=== PATIENT | female | born 1980 | race Caucasian/White ===

== ENCOUNTER 2023-10-31 16:44 | Emergency (ER) | payer OTHER, SELFPAY ==
--- NOTE | ~2023-10-31 | US_ITS ---
EXAMINATION: US PELVIS CLINICAL INFORMATION: Pelvic pain COMPARISON: None available. TECHNIQUE: Ultrasound of the pelvis is performed using both transabdominal and transvaginal transducers along with Doppler. Transvaginal imaging is performed due to inadequate visualization transabdominally. FINDINGS: Uterus: The uterus is anteverted, anteflexed and measures 10.2 x 4.2 x 5.8 cm. There is an IUD visualized within the endometrial canal in correct position The double wall endometrial thickness is 0.7 mm. The uterus is smooth in contour and has normal myometrial echogenicity. Small hypoechoic lesion in the left fundal uterus noted measuring 0.9 x 0.9 x 1.0 cm.. Adnexa: Both ovaries are visualized. There is normal color flow to the adnexa. There is no ovarian torsion. There is no pelvic ascites or fluid collection. Right ovary measures 3.8 x 1.2 x 1.8 cm. Volume 4.3 mL. Left ovary measures 3.0 x 2.0 x 2.0 cm. There is a corpus luteal cyst measuring 1.3 x 1.5 x 1.4 cm. US/US pelvic and transvaginal IMPRESSION: 1. Small left fundal uterine fibroid. 2. Small corpus luteal cyst left ovary. 3. The right ovary is unremarkable. 4. There is an IUD in correct position within the endometrial canal.
--- NOTE | ~2023-10-31 | US_ITS ---
EXAMINATION: US PELVIS CLINICAL INFORMATION: Pelvic pain COMPARISON: None available. TECHNIQUE: Ultrasound of the pelvis is performed using both transabdominal and transvaginal transducers along with Doppler. Transvaginal imaging is performed due to inadequate visualization transabdominally. FINDINGS: Uterus: The uterus is anteverted, anteflexed and measures 10.2 x 4.2 x 5.8 cm. There is an IUD visualized within the endometrial canal in correct position The double wall endometrial thickness is 0.7 mm. The uterus is smooth in contour and has normal myometrial echogenicity. Small hypoechoic lesion in the left fundal uterus noted measuring 0.9 x 0.9 x 1.0 cm.. Adnexa: Both ovaries are visualized. There is normal color flow to the adnexa. There is no ovarian torsion. There is no pelvic ascites or fluid collection. Right ovary measures 3.8 x 1.2 x 1.8 cm. Volume 4.3 mL. Left ovary measures 3.0 x 2.0 x 2.0 cm. There is a corpus luteal cyst measuring 1.3 x 1.5 x 1.4 cm. US/US pelvic ovarian doppler IMPRESSION: 1. Small left fundal uterine fibroid. 2. Small corpus luteal cyst left ovary. 3. The right ovary is unremarkable. 4. There is an IUD in correct position within the endometrial canal.
[2023-10-31 17:10] VITALS: BP 153/84; PULSE 74; RESP 16; TEMP 36.9; O2SAT 98; BMI 18.2
--- NOTE | 2023-10-31 17:11 | ED_ITS ---
HPI - Female Genitourinary General Chief complaint: Abdominal Pain Stated complaint: pelvic pain hard to walk and move Time Seen by Provider: 10/31/23 17:03 Source: patient Mode of arrival: ambulatory Limitations: no limitations History of Present Illness HPI Narrative: Patient is a 43-year-old female who presents to the emergency department for evaluation. She reports having pelvic pain for the past week, initially started in the left lower side but is now diffuse across the suprapubic region, radiating to the bilateral groin. Pain is constant in nature. She reports that the pain is exacerbated with movement, such as twisting of the torso, while ambulating, certain movements. She denies dysuria, frequency/urgency/hesitancy, abnormal discharge, concern for sexually transmitted infections. Denies possibility of , reporting IUD; ParaGard for the past 5 years, last menstrual period October 14 with typical course. She admits to a history of ovarian cysts. Denies associated fevers, chills, nausea, vomiting, upper abdominal pain, back pain, chest pain, shortness of breath. Related Data Allergies Allergy/AdvReac Type Severity Reaction Status Date / Time No Known Allergies Allergy Verified 10/31/23 17:13 Review of Systems 2 Review of Systems: Yes all other systems are reviewed and are negative PMFSH Past Medical History Attestation statement: The following information was validated with the patient. Source: old records reviewed Social History Social History Advance Directives: No Advance Directives Information Provided: No Do you have a plan to hurt others: No Plan Physical Exam 2 Vital Signs: Vital Signs: Last Vital Signs Temp 98.5 F 10/31/23 19:18 Pulse 76 10/31/23 19:18 Resp 16 10/31/23 19:18 BP 116/63 10/31/23 19:18 Pulse Ox 99 10/31/23 19:18 O2 Del Method Room Air 10/31/23 19:18 BMI result Body Mass Index 18.2 Appearance: Alert.?Oriented to person, place and time. No acute distress.?Normal affect. Eyes: Pupils equal, round and reactive to light.? ENT: Pharynx normal.?? Neck: Normal inspection.? Neck supple.?? CVS: Heart sounds normal. Normal heart rate and rhythm.? Pulses normal.?? Respiratory: No respiratory distress.? Lung sounds clear to auscultation bilaterally?? Abdomen: Soft and non-tender. No CVA tenderness. Normoactive bowel sounds. No pulsatile mass.? Genitourinary:? Supervised by ED computer forensics technician;Peyton. Normal external appearance of urethra.? No lesions/lacerations or discharge or tenderness noted. No Bartholin cyst noted.? Speculum exam: normal appearance/palpation of vagina normal. Copious amount of mucosal yellow vaginal discharge, swelling, erythema, laceratons, or active bleeding noted.?No foreign bodies noted.? No vaginal tenderness noted.? Normal appearance of cervix. Normal palpation of cervix.? Cervical os is closed.? No abnormal cervical discharge noted.? No cervical lesion/mass. Unable to visualize IUD strings.?? No cervical motion tenderness noted.? Negative chandelier sign.? Normal bimanual exam.? Uterine size normal. Uterine consistency normal, non friable.? Bladder normal to palpation. Normal adnexa. Normal rectovaginal exam.? Skin: Skin warm and dry.? Normal skin color.? ?? Extremities: No lower extremity edema. Neuro: Moves all extremities spontaneously. Sensation intact bilaterally. Ambulates with normal steady gait. Course Reevaluation(s) Reevaluation #1: Reviewed findings with patient, she has an outpatient follow-up with her obstetrics gyn physician provider tomorrow, she will discuss with them the presence of uterine fibroid. She reports some improvement in pain after receiving Toradol. We also discussed muscular strain into the groin that may be resulting in pain as well it is worse with ambulating, while sitting with hips flag. At this time I feel that she is stable for discharge home, outpatient follow-up with obstetrics gyn physician/primary care provider, instructed on trialing course of NSAID. Discussed strict return precautions. All questions answered. Medications Administered Discontinued Medications Generic Name Dose Route Start Last Admin Trade Name Freq PRN Reason Stop Dose Admin Ketorolac Tromethamine 30 mg 10/31/23 18:10 10/31/23 20:27 Ketorolac Tromethamine 30 Mg/Ml Vial IM 10/31/23 18:11 30 mg ONCE ONE Administration Medical Decision Making Medical Decision Making MDM Narrative: Patient is a 43-year-old female with past medical history of ovarian cyst who presents to the emergency department for evaluation of pelvic pain as per HPI. Overall she appears well, nontoxic, afebrile. She is without tachycardia tachypnea, no respiratory distress. Her abdominal examination is overall benign no tenderness upon palpation exacerbation of pain. No CVA tenderness. On pelvic examination has copious amount of mucosal yellow discharge, she does admit that this is the time she would typically be ovulating and she does usually experience discharge of this nature. Unable to visualize IUD strings at the cervical os. Otherwise unremarkable pelvic examination. Will obtain CBC to evaluate for leukocytosis/ anemia, CMP and lipase to evaluate for abnormal electrolytes /abnormal renal function/ abnormal hepatic/biliary function, EKG and troponin to evaluate for ischemia/ACS. Chest x-ray to evaluate for consolidation/ infiltrate/ mass/ pulmonary congestion and Urinalysis. Differential Diagnosis Differential Diagnoses: The differential diagnosis associated with the presentation includes (Ovarian cyst, TOA/torsion, UTI, muscular strain, suspect less likely to be acute gastrointestinal pathology) Admission/Observation Consideration of admission/observation: Escalation of care including admission/observation considered Lab Data MDM Lab Attestation statement: I reviewed the patient's lab results. CMP unremarkable no electrolyte derangement WALTER arrived in a hepatobiliary function. Urinalysis without evidence of infection or microscopic hematuria. HCG is negative. 10/31/23 17:58 10/31/23 17:57 Labs: Lab Results 10/31/23 10/31/23 Range/Units 17:57 17:58 WBC 9.3 (4.8-10.8) X10*3/uL RBC 4.02 L (4.20-5.50) X10*6/uL Hgb 13.2 (12.0-16.0) g/dl Hct 38.7 (37.0-47.0) % MCV 96.3 (80.0-98.0) fL MCH 32.8 (27.0-33.0) pg MCHC 34.1 (31.0-35.0) g/dl RDW 11.9 (11.0-16.0) % Plt Count 283 (160-400) X10*3/uL MPV 9.5 (9.4-12.3) fL Immature Gran % (Auto) 0.3 (0.0-0.4) % Neut % (Auto) 67.8 (45-73) % Lymph % (Auto) 24.7 (20-40) % Davidson % (Auto) 6.4 (2-11) % Eos % (Auto) 0.5 (0-4) % Baso % (Auto) 0.3 (0-2) % Lymph # (Auto) 2.3 (1.2-4.9) X10*3/uL Davidson # (Auto) 0.6 (0.1-1.2) X10*3/uL Eos # (Auto) 0.1 (0.0-0.4) X10*3/uL Baso # (Auto) 0.0 (0.0-0.2) X10*3/uL Abs Immat Gran (auto) 0.03 (0.00-0.03) X10*3/uL Absolute Neuts (auto) 6.3 (2.0-8.3) x10*3/uL Absolute Nucleated RBC 0.000 (0.0-0.012) X10*3/uL Nucleated RBC % (auto) 0.0 (0.0-0.2) /100WBC Sodium 139 (135-145) mmol/L Potassium 3.9 (3.3-5.1) mmol/L Chloride 106 (96-108) mmol/L Carbon Dioxide 25 (22-29) mmol/L Anion Gap 12 (12-20) BUN 10 (9-16) mg/dL Creatinine 0.72 (0.5-1.4) mg/dL Estim Creat Clear Calc 88.3 Estimated GFR > 60 Random Glucose 91 (60-115) mg/dL Calcium 9.5 (8.4-10.2) mg/dL Total Bilirubin 0.4 (0.0-1.0) mg/dL AST 14 (5-31) U/L ALT 10 (0-31) U/L Alkaline Phosphatase 45 (39-117) U/L Total Protein 7.2 (6.5-8.0) g/dL Albumin 4.2 (3.5-5.0) g/dL Lipase 16 (8-78) U/L Urine Color Yellow Urine Appearance Clear Urine pH 6.5 (5.0-9.0) Ur Specific [place] 1.010 (1.005-1.025) Urine Protein Negative (Neg-Trace) mg/dL Urine Glucose (UA) Negative (Negative) mg/dL Urine Ketones 15 (Negative) mg/dL Urine Blood Negative (Negative) Urine Nitrite Negative (Negative) Ur Leukocyte Esterase Negative (Negative) Urine Test NEGATIVE (NEGATIVE) Radiology Impression Discussion of test interpretation with radiology: I have reviewed the radiologist's reading. Discharge Plan Discharge Clinical Impression: Uterine fibroid, Pelvic pain Patient Disposition: Home, Self-Care Additional Instructions: As discussed, follow-up closely with your obstetrics gyn physician provider as scheduled for tomorrow in addition to your primary care provider. You can take ibuprofen 200 mg, 3 tablets (600mg) every 6-8 hours as needed for pain, in addition to Tylenol 500 mg, 2 tablets (1,000mg) every 4-6 hours as needed for pain, but not to exceed 3 doses daily (3,000mg).? FINDINGS: Uterus: The uterus is anteverted, anteflexed and measures 10.2 x 4.2 x 5.8 cm. There is an IUD visualized within the endometrial canal in correct position The double wall endometrial thickness is 0.7 mm. The uterus is smooth in contour and has normal myometrial echogenicity. Small hypoechoic lesion in the left fundal uterus noted measuring 0.9 x 0.9 x 1.0 cm.. Adnexa: Both ovaries are visualized. There is normal color flow to the adnexa. There is no ovarian torsion. There is no pelvic ascites or fluid collection. Right ovary measures 3.8 x 1.2 x 1.8 cm. Volume 4.3 mL. Left ovary measures 3.0 x 2.0 x 2.0 cm. There is a corpus luteal cyst measuring 1.3 x 1.5 x 1.4 cm. US/US pelvic and transvaginal IMPRESSION: 1. Small left fundal uterine fibroid. 2. Small corpus luteal cyst left ovary. 3. The right ovary is unremarkable. 4. There is an IUD in correct position within the endometrial canal. Referrals: Nadeem Velez DO, MD [Primary Care Provider] - Print Language: Guatemalan
--- OUTSIDE RECORDS SUMMARY | 2023-10-31 17:50 | XMS_ITS | Continuity of Care Document ---
Author Organization [facility] Address [address] [place] [address]- Care Team Providers Care Furniture Sales Associate Name Role Phone Nadeem Velez DO Primary Care Physician Encounter 05/25/22 - 06/01/22 [facility] [address], [address] [place], [place] [address] Attending Physician: Nadeem Velez DO Admitting Physician: Nadeem Velez DO Referring Physician: Nadeem Velez DO Allergies, Adverse Reactions, Alerts No Known Allergies Immunizations Given and Recorded Vaccine Date Status Refusal Reason tetanus/diphtheria/pertussis, acel(Tdap) 1 05/10/11 Given 1Admin Note: Patient given verbal consent for receiving this vaccine; patient given literature for Tdap. Info date 03/18/2008 Medications Multivitamins By Mouth, Daily, 0 Refills, Maintenance, 12/05/17 11:14:27 EDT Start Date: 12/05/17 Status: Ordered Problem List Condition Confirmation Course Effective Dates Status Health St atus Informant Diabetes, gestational Confirmed Active Hemorrhoid Confirmed Active Results Radiology Reports * Exam Date Time Procedure Performing Provider Status 05/25/22 12:00 PM MM Digital Mammo Screening Ruthann Canas; Kiara (Verified) Notes: (MM Digital Mammo Screening) Reason For Exam: Z12.31 SCREENING MAMMOGRAM RESULT: MM Digital Mammo Screening PROCEDURE: MM Digital Mammo Screening INDICATION: Screening. No known palpable abnormalities. COMPARISON: Baseline mammogram. TECHNIQUE: Full-field digital CC and MLO 3D tomosynthesis images of both breasts were acquired. Computer-aided detection (CAD) was utilized in the interpretation of this study. DENSITY: The breast tissue is heterogeneously dense, which may obscure masses. FINDINGS: No suspicious masses, suspicious microcalcifications, or areas of architectural distortion are seen in either breast to suggest malignancy. IMPRESSION: No mammographic evidence of malignancy. RECOMMENDATION: Annual mammographic screening BI-RADS: 1 (Negative) Lay letter mailed to patient WSN: [id number] Ordering Physician: Nadeem Velez Dictated By: Rene Heart MD Dictated Date/Time: 05/25/22 12:04 pm Reviewed By: Rene Heart MD Signed By: Rene Heart MD Signed Date/Time: 05/25/22 12:04 pm Transcribed By: RAKESH Loan Operations Specialist Date/Time: 05/25/22 12:04 pm Birads: Social History Social History Type Response Smoking Status Never smoker entered on: 12/05/17 Sex MG Breast Screening * BHSPowerscribe , CIS S: TRANSCRIBE Rene Heart MD: VERIFY Event Display: Result: Authored Date: [id number] PROCEDURE: MM Digital Mammo Screening INDICATION: Screening. No known palpable abnormalities. COMPARISON: Baseline mammogram. TECHNIQUE: Full-field digital CC and MLO 3D tomosynthesis images of both breasts were acquired. Computer-aided detection (CAD) was utilized in the interpretation of this study. DENSITY: The breast tissue is heterogeneously dense, which may obscure masses. FINDINGS: No suspicious masses, suspicious microcalcifications, or areas of architectural distortion are seen in either breast to suggest malignancy. IMPRESSION: No mammographic evidence of malignancy. RECOMMENDATION: Annual mammographic screening BI-RADS: 1 (Negative) Lay letter mailed to patient WSN: [id number] Ordering Physician: Nadeem Velez Dictated By: Rene Heart MD Dictated Date/Time: 05/25/22 12:04 pm Reviewed By: Rene Heart MD Signed By: Rene Heart MD Signed Date/Time: 05/25/22 12:04 pm Transcribed By: RAKESH Loan Operations Specialist Date/Time: 05/25/22 12:04 pm Birads: Patient Care team information Care Team Personnel Name: Nadeem Velez DO Position: [facility] Physician (General Medicine) Member Role: PCP Address: Address: [address] [place] [address] [address] [place], [place] [address] Care Team Related Persons Name: MORENO PALMA Address: [address] [place] [address] Name: SRINI SIMON Address: [address] [place] [address] Name: SUNNY SIMON Address: [employer] Address: [address] [place] [address]
--- OUTSIDE RECORDS SUMMARY | 2023-10-31 17:50 | XMS_ITS | Continuity of Care Document ---
Author Organization [facility] Address [address] [place] [address]- Care Team Providers Care Director Of Perioperative Services Name Role Phone Nadeem Velez DO Primary Care Physician Encounter 04/11/22 - 04/18/22 [facility] [address], [facility] [address] [place] [address] [place] Attending Physician: Nadeem Velez DO Admitting Physician: [...] Diabetes, gestational Confirmed Active Hemorrhoid Confirmed Active Social History Social History Type Response Smoking Status Never smoker entered on: 12/05/17 Sex Patient Care team information Care Team Personnel Name: Nadeem Velez DO Position: [facility] Physician (General Medicine) Member Role: PCP Address: Address: [address] [place] [address] [address] [place] [address]- Care Team Related Persons Name: MORENO PALMA Address: [address] [place] [address] Name: SRINI SIMON Address: [address] [place] [address] Name: SUNNY SIMON Address: [employer] Address: [address] [place] [address]
--- OUTSIDE RECORDS SUMMARY | 2023-10-31 17:50 | XMS_ITS | Continuity of Care Document ---
Author Organization [facility] Address [address] [place] [address]- Care Team Providers Care Rubber Process Hand Name Role Phone Nadeem Velez DO Primary Care Physician Encounter [facility] Date(s): 05/01/21 - 06/06/[address] [address] Attending Physician: Gutierrez Quijano Admitting Physician: Gutierrez Quijano Referring Physician: Barry Connolly MD Allergies, Adverse Reactions, Alerts No Known Allergies Immunizations Given and Recorded Vaccine Date Status Refusal Reason tetanus/diphtheria/pertussis, acel(Tdap) 1 05/10/11 Given 1Admin Note: Patient given verbal consent for receiving this vaccine; patient given literature for Tdap. Info date 03/18/2008 Medications Multivitamins By Mouth, Daily, 0 Refills, Maintenance, 12/05/17 11:14:27 EDT Start Date: 12/05/17 Status: Ordered Problem List Condition Effective Dates Status Health Status Inform ant Diabetes, gestational(Confirmed) Active Hemorrhoid(Confirmed) Active Social History Social History Type Response Smoking Status Never smoker entered on: 12/05/17 Sex
--- OUTSIDE RECORDS SUMMARY | 2023-10-31 17:50 | XMS_ITS | Continuity of Care Document ---
Author Organization [facility] Address Unknown Care Team Providers Care Informix Developer Name Role Phone Nadeem Velez DO Primary Care Physician En[place] [facility](s): 06/28/21 - 07/28/21 [facility] Attending Physician: Olivia Castillo Admitting Physician: Olivia Castillo Referring Physician: Olivia Castillo Allergies, Adverse Reactions, Alerts No Known Allergies [...]
--- OUTSIDE RECORDS SUMMARY | 2023-10-31 17:50 | XMS_ITS | Continuity of Care Document ---
Author Organization [facility] Address [address] [place] [address]- Care Team Providers Care Engine Oiler Name Role Phone Nadeem Velez DO Primary Care Physician Encounter [facility] Date(s): 05/10/21 - 06/10/[address] [address] Allergies, Adverse Reactions, Alerts No Known Allergies [...]
--- OUTSIDE RECORDS SUMMARY | 2023-10-31 17:50 | XMS_ITS | Continuity of Care Document ---
Author Organization [facility] Address [address] [place] [address]- Care Team Providers Care Singer Songwriter Name Role Phone Nadeem Velez DO Primary Care Physician Encounter [facility] Date(s): 05/11/21 - 06/10/[address] [address] Attending Physician: Olivia Castillo Admitting Physician: Olivia Castillo Referring Physician: AdmtrOlivia Allergies, Adverse Reactions, Alerts No Known Allergies [...]
--- OUTSIDE RECORDS SUMMARY | 2023-10-31 17:51 | XMS_ITS | Continuity of Care Document ---
Author Organization [facility] Address Unknown Care Team Providers Care Car Pincher Name Role Phone Nadeem Velez DO Primary Care Physician Encounter [facility] [place] Date(s): 06/28/21 - 07/05/21 [facility] Encounter Diagnosis Hemorrhoid(Discharge Diagnosis) - 06/28/21 Attending Physician: Nadia BEARDEN, Dorcas Bright Referring Physician: Nadeem Velez DO Allergies, Adverse [...] Inform ant Diabetes, gestational(Confirmed) Active Hemorrhoid(Confirmed) Active Diagnosis Diagnosis Type Effective Dates Health Status Clini dalila Service Informant Hemorrhoid Discharge Diagnosis 06/28/21 Vital Signs Most recent to oldest [Reference Range]: 1 Height 168 cm (06/28/21 11:21 AM) Weight 59.5 kg (06/28/21 11:21 AM) Pulse Rate [55-90 bpm] 96 bpm *H* (06/28/21 11:21 AM) Body Mass Index [18.5-24.99] 21.08 (06/28/21 11:21 AM) Blood Pressure [90-138/55-84 mm Hg] 131/ 84mm Hg (06/28/21 11:21 AM) Temperature [96.8-100.4 DegF] 98.8 DegF (06/28/21 11:21 AM) Social History Social History Type Response Smoking Status Never smoker entered on: 12/05/17 Sex
--- OUTSIDE RECORDS SUMMARY | 2023-10-31 17:51 | XMS_ITS | Continuity of Care Document ---
Author Organization [facility] Address Unknown Care Team Providers Care Psych Np Name Role Phone Nadeem Velez DO Primary Care Physician [place] [facility] [place] 05/21[place]21 - 07/16/21 [facility] Attending Physician: Isidoro BEARDEN, Savanna Lerner Referring Physician: Nadeem Velez DO Allergies, Adverse [...]
--- OUTSIDE RECORDS SUMMARY | 2023-10-31 17:51 | XMS_ITS | Continuity of Care Document ---
Author Organization [facility] ion Address [address] [place] [id number]- Care Team Providers Care Farm Product Purchaser Name Role Phone Nadeem Velez DO Primary Care Physician Encounter [facility] [place] Date(s): 05/11/21 - 01/12/[address] [address] Discharge Disposition: A-D/C Home Admitting Physician: Not on Staff, Admitting MD Referring Physician: Not on Staff, Referring MD Allergies, Adverse Reactions, Alerts No Known [...] Status Never smoker entered on: 12/05/17 Sex Care Team Personnel Name: Nadeem Velez DO Address: [address] [place] [address] [address] [place] [address]-
--- OUTSIDE RECORDS SUMMARY | 2023-10-31 17:51 | XMS_ITS | Continuity of Care Document ---
Author Organization [facility] Address [address] [facility] [place] [address]- Care Team Providers Care Hvac Designer Name Role Phone Nadeem Velez DO Primary Care Physician Encounter 09/28/21 - 03/16/22 [facility] [address], [facility] [address] [place] [address] us Attending Physician: Nadeem Velez DO Admitting [...] Team Personnel Name: Nadeem Velez DO Position: [facility] Physician (General Medicine) Member Role: PCP Address: Address: [address] [place] [address] [address] [place] [address]- Care Team Related Persons Name: MORENO PALMA Address: home [address] [place] [address] Name: SRINI SIMON Address: home [address] [place] [address] Name: SUNNY SIMON Address: [employer] Address: [address] [place] [address]
[2023-10-31 18:00] VITALS: BP 116/66; PULSE 66; RESP 16; TEMP 36.7; O2SAT 98
[2023-10-31 18:08] LABS: Basophils Percent Auto 0.3 % (0-2); Eosinophils Absolute Auto 0.1 X10*3/uL (0.0-0.4); Eosinophils Percent Auto 0.5 % (0-4); Hematocrit 38.7 % (37.0-47.0); Hemoglobin 13.2 g/dl (12.0-16.0); Imm Gran Abs Auto 0.03 X10*3/uL (0.00-0.03); Imm Gran Pct Auto 0.3 % (0.0-0.4); Lymphocytes Absolute Auto 2.3 X10*3/uL (1.2-4.9); Lymphocytes Percent Auto 24.7 % (20-40); MANUAL DIFF FLAG NO; Mean Corpuscular HGB Conc 34.1 g/dl (31.0-35.0); Mean Corpuscular Hemoglobin 32.8 pg (27.0-33.0); Mean Corpuscular Volume 96.3 fL (80.0-98.0); Mean Platelet Volume 9.5 fL (9.4-12.3); Monocytes Absolute Auto 0.6 X10*3/uL (0.1-1.2); Monocytes Percent Auto 6.4 % (2-11); Neutrophils Absolute Auto 6.3 x10*3/uL (2.0-8.3); Neutrophils Percent Auto 67.8 % (45-73); Platelet Count 283 X10*3/uL (160-400); Red Blood Count 4.02 X10*6/uL (4.20-5.50); Red Cell Distribution Width 11.9 % (11.0-16.0); White Blood Count 9.3 X10*3/uL (4.8-10.8)
[2023-10-31 18:15] LABS: Appearance Urine Clear; Color Urine Yellow; Glucose Urine UA Negative (Negative); Leukocyte Esterase Urine Negative (Negative); Nitrite Urine Negative (Negative); PH 6.5 (5.0-9.0); Urine Blood Negative (Negative); Urine Ketones 15 mg/dL (Negative); Urine Protein Negative (Neg-Trace)
[2023-10-31 18:17] LABS: Alanine Aminotransferase 10 U/L (0-31); Albumin Level 4.2 g/dL (3.5-5.0); Alkaline Phosphatase 45 U/L (39-117); Anion Gap 12 (12-20); Aspartate Amino Transferase 14 U/L (5-31); Bilirubin Total 0.4 mg/dL (0.0-1.0); Blood Urea Nitrogen 10 mg/dL (9-16); Calcium 9.5 mg/dL (8.4-10.2); Carbon Dioxide 25 mmol/L (22-29); Chloride 106 mmol/L (96-108); Creatinine Clr Calc Pharmacy 88.3; Estimated Glomerular Filt Rate > 60; Glucose Random 91 mg/dL (60-115); Lipase 16 U/L (8-78); Potassium 3.9 mmol/L (3.3-5.1); Sodium 139 mmol/L (135-145); Total Protein 7.2 g/dL (6.5-8.0)
[2023-10-31 18:18] LABS: UPreg QC Valid YES; Urine Pregnancy NEGATIVE (NEGATIVE)
[2023-10-31 19:18] VITALS: BP 116/63; PULSE 76; RESP 16; TEMP 36.9; O2SAT 99
[2023-10-31] MEDS: Ketorolac Tromethamine 30 MG/ML VIAL IM (20:27)
[2023-10-31 21:28] VITALS: BP 107/60; PULSE 62; RESP 16; TEMP 36.9; O2SAT 98
[2023-10-31 21:36] VITALS: BP 107/60; PULSE 62; RESP 16; TEMP 36.9; O2SAT 98
[2023-11-01 02:19] LABS: CT PCR NOT DETECTED (Not Detect.); NG PCR NOT DETECTED (Not Detect.)
[2023-11-01 08:57] LABS: Bacterial Vaginosis PCR NEGATIVE (Negative); Candida Group PCR NOT DETECTED (Not Detect); Candida glab krusei PCR NOT DETECTED (Not Detect); Trichomonas vaginalis PCR NOT DETECTED (Not Detect)
== END 2023-10-31 21:43 | disposition home or self-care (01) ==
PROVIDERS: Nurse Practitioner Family; Emergency Provider Internal Medicine; PCP Internal Medicine
DX: D25.9 Leiomyoma of uterus, unspecified (principal); R10.2 Pelvic and perineal pain
CPT/HCPCS: 0352U; 36415; 76830; 76856; 80053; 81003; 81025; 83690; 85025; 87491; 87591; 93975; 96372; 99284; J1885

== ENCOUNTER 2024-02-20 16:21 | Outpatient (REF) | payer OTHER, SELFPAY ==
--- NOTE | ~2024-02-20 | MR_ITS ---
EXAMINATION: MR PELVIS WITH CONTRAST CLINICAL INFORMATION: Right sacroiliac pain. COMPARISON: None available. TECHNIQUE: MRI of the pelvis, using sacral protocol. Multiplanar multisequence imaging on a 1.5 Clarissa scanner. FINDINGS: BONE/JOINTS: There is edema in the ilium and the sacrum marginating the right SI joint. The right SI joint appears wider as compared to the left side. No significant joint effusion is seen. No significant edema or effusion is identified associated with the left SI joint. No significant sacral edema otherwise to indicate stress injury or fracture. Limited evaluation of the hip joints, with anatomic alignment. No findings to suggest fracture, avascular necrosis or stress reaction. In the visualized lower lumbar spine, the vertebral body heights are maintained. Loss of signal in the L5-S1 disc. MUSCLE/TENDONS: Limited evaluation. Visualized tendons are intact. No significant muscle edema or tear are seen. No significant greater trochanteric or iliopsoas bursitis. ADDITIONAL FINDINGS: Urinary bladder appears unremarkable. Small fluid in the pelvis. No groin lymphadenopathy. MR/MR pelvis wo con IMPRESSION: Right sacroiliac joint findings consistent with sacroiliitis. Correlate with x-ray. Small free fluid in the pelvis, probably physiologic. Electronically signed by: Adan Escamilla MD 02/22/2024 09:22 AM EDT
== END 2024-02-20 16:22 | disposition home or self-care (01) ==
LOC: HO.MRI 16:21
PROVIDERS: PCP Internal Medicine; Visit Provider Internal Medicine
DX: M46.1 Sacroiliitis, not elsewhere classified (principal)
CPT/HCPCS: 72195

== ENCOUNTER 2024-02-23 11:15 | Outpatient (AMB) | payer OTHER, SELFPAY ==
--- NOTE | 2024-02-23 11:19 | MHC.OFFVIS ---
Intake Visit Reasons: right hip pain, Low back pain Intake Note: Christine is a 44-year-old female who presents with complaints of progressively worsening pain along the posterior aspect of her right hip as well as low back pain. The patient states that her symptoms have gotten somewhat worse since she had her 3rd child approximately 6 years ago. She denies any weakness in either lower extremity. The patient states that her pain is worst around the time of her monthly menstrual cycle. She has tried to leave, Tylenol and Motrin which gave her minimal relief. The patient states that at time she is bed ridden because of her pain. She denies any numbness or tingling in either of her lower extremities. Allergies No Known Allergies Allergy (Verified 10/31/23 17:13) Medication List - Last Reconciled 02/23/24 by Mnih Arrington MD No Known Home Meds Physical Exam Const Other: This examination was performed via telephone conversation. The patient states that she is point tender along the right side of her low back Results Reviewed Results Reviewed: Pelvic ultrasound performed on 10/31/2023 shows a small uterine fibroid, IUD visualized, small corpus luteal cyst left ovary MRI of the patient's pelvis taken on 02/20/2024 shows widening of the right sacroiliac joint with no obvious sacral edema, stress injury or fracture; uterine fibroid Assessment & Plan Assessment & Plan (1) Low Back Pain: Code(s): M54.50 - Low back pain, unspecified Category: Medical Plan Christine is a 44-year-old female who presents with progressively worsening right-sided low back pain most likely due to sacroiliitis as well as possible worsening symptoms from her uterine fibroid. The patient's MRI was reviewed with both doctors Jose and Josafat from pain management and peoplesoft taleo manager here at [facility] respectively. They both agree to see her in consultation for further evaluation. I will contact Dr. Velez's office for the needed referrals. The patient will follow-up as instructed. Feel free to call me at any time should questions regarding her orthopedic management arise. Coding Level of Care Code Tele New Pt Level 3 (98983) Complex EM visit Add On G2211 Diagnoses Low Back Pain M54.50
== END 2024-02-23 11:43 | disposition home or self-care (01) ==
LOC: HO.HOS 11:15
PROVIDERS: PCP Internal Medicine; Visit Provider Orthopaedic Surgery
DX: M54.50 Low back pain, unspecified (principal)
CPT/HCPCS: 99443

== ENCOUNTER → 2024-02-23 11:15 | Outpatient (BNVA) | payer OTHER, SELFPAY | PROVIDERS: PCP Internal Medicine; Visit Provider Orthopaedic Surgery ==

== ENCOUNTER 2024-03-04 13:11 | Outpatient (AMB) | payer OTHER, SELFPAY ==
--- NOTE | 2024-03-04 13:15 | MHC.OFFVIS ---
Vital Signs 03/04/24 13:22 Height 5 ft 8 in Weight 132 lb 4 oz BMI 20.1 BP 116/70 Blood Pressure Location Lt brachial Position Sitting Respiration 16 Pulse 70 Pulse Source Pulse Oximeter Pulse Oximetry (%) 99 Oxygen Delivery Method Room Air Intake Visit Reasons: Sacroilac Sclerosis foun on Xray Intake Note: Patient comes in for initial visit was referred by [facility]. Reports pain 0/10. Allergies No Known Allergies Allergy (Verified 03/04/24 13:21) HPI Comments Details: Christine is very pleasant 44 years old female who presents in my office with no complaints today. She reports that she feels no pain whatsoever today at all. She has episodes of intermittent lower back pain which started to bother her 8 years ago after she delivered her 2nd child. She reports pain in the projection of the right buttock in the projection of the sacroiliac joint location. When the it is hurtful she can not sleep normally can not do activities of daily living she can not take care of herself but she can not function normally. She is working full-time. In terms of tissue damage he reports her pain is shooting, lancinating, sharp, pinching, cramping, sore, hurting, aching, heavy, tiring, exhausting, fearful, radiating, piercing, tight sensation. When she experiences severe pain she takes Tylenol 350 mg 2 pills and Advil 200 mg 2 pills at once and that makes her pain better however she reports that she does not feel herself after this medications. She had an MRI of the pelvis results of which dictated as below. On the MRI there is symptoms of sacroiliitis on the right. She never had any injections. She never had any physical therapy. She never had any diagnostic procedures. She is very active and she likes to exercise. She walks outside and she also walks on a treadmill. There is no past medical history. Past surgical history significant for tonsillectomy. 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 She denies smoking cigarettes socially drinks alcohol she denies caffeinated beverages but admits plain coffee. She denies recreational drugs. Review of Systems Const All systems reviewed & are unremarkable except as noted in HPI and below ENT Reports Normal hearing present Neuro Reports Normal hearing present, Denies Abnormal speech present and Denies Sensory deficit (Neuro) Physical Exam Vital Signs: Last Vital Signs Pulse 70 03/04/24 13:22 Resp 16 03/04/24 13:22 BP 116/70 03/04/24 13:22 Pulse Ox 99 03/04/24 13:22 Oxygen Delivery Method Room Air 03/04/24 13:22 BMI result Body Mass Index 20.1 Const General: no acute distress, alert and Physically active Nutritional Appearance: average body habitus and well nourished Orientation/consciousness: patient oriented x3 Limitations: no limitations Eyes General: appearance normal, both eyes and all related structures Pupils: Equal, round and reactive pupils present EOM: EOMs intact bilaterally Neck Neck: Yes full ROM Chest Chest palpation & inspection: normal inspection of the chest Resp Effort & Inspection: normal respiratory effort, able to speak in complete sentences, normal respiratory pattern, no audible wheezes and no cough Cardio Jugular venous distension: no JVD GI Inspection: Yes normal to inspection Back/Spine/Pelvis Other: Currently patient experiences no pain. No tenderness on palpation in the projection of the sacroiliac joints. Negative Arturo test, negative Gaenslen test, negative pelvic compression and pelvic distraction test. Negative thigh thrust test. Neuro General: patient oriented x3 and gait normal Cranial nerves: Yes CN's II-XII intact bilaterally, Yes Equal, round and reactive pupils present, Yes Normal hearing present and Yes Ability to bilaterally elevate shoulders present Speech: No Abnormal speech present Gait exam (Neuro): Normal gait present Motor exam (neuro): 5/5 motor strength present throughout Sensory Exam: No Sensory deficit (Neuro) Extrem General: No pedal edema Psych Speech and movement: Normal speech and movement present Affect: normal affect Attitude: cooperative Thought process: Normal thought process present Thought content: Normal thought content present Insight: Good insight present (Psych) Judgement: Good judgement present (Psych) Results Reviewed Results Reviewed: MRI of the pelvis, using sacral protocol. Multiplanar multisequence imaging on a 1.5 Clarissa scanner. FINDINGS: BONE/JOINTS: There is edema in the ilium and the sacrum marginating the right SI joint. The right SI joint appears wider as compared to the left side. No significant joint effusion is seen. No significant edema or effusion is identified associated with the left SI joint. No significant sacral edema otherwise to indicate stress injury or fracture. Limited evaluation of the hip joints, with anatomic alignment. No findings to suggest fracture, avascular necrosis or stress reaction. In the visualized lower lumbar spine, the vertebral body heights are maintained. Loss of signal in the L5-S1 disc. MUSCLE/TENDONS: Limited evaluation. Visualized tendons are intact. No significant muscle edema or tear are seen. No significant greater trochanteric or iliopsoas bursitis. ADDITIONAL FINDINGS: Urinary bladder appears unremarkable. Small fluid in the pelvis. No groin lymphadenopathy. IMPRESSION: Right sacroiliac joint findings consistent with sacroiliitis. Correlate with x-ray. Small free fluid in the pelvis, probably physiologic. Assessment & Plan Assessment & Plan (1) Sacroiliitis: Code(s): M46.1 - Sacroiliitis, not elsewhere classified Category: Medical Plan The MRI of the pelvic demonstrates sacroiliac joint inflammation. Currently patient does not exhibit any signs of sacroiliitis or sacroiliac joint pain. I can not offer the patient at this time any injections however if her pain will come back I would be glad to recommend right sacroiliac joint diagnostic injection. Meanwhile recommend her to avoid high impact aerobic exercise, exercise with stationary bicycle, elliptical machine, or swimming. She may take Tylenol and ibuprofen/Advil for control of her pain. Physical therapy and sacroiliac joint belt could be recommended if her problem is demonstrated by sacroiliac joint diagnostic injection, therapeutic sacroiliac joint injection could be also performed. Coding Level of Care Code New Pt Level 3 (78804) Diagnoses Sacroiliitis M46.1
[2024-03-04 13:22] VITALS: BP 116/70; PULSE 70; RESP 16; O2SAT 99; BMI 20.1
== END 2024-03-04 14:07 | disposition home or self-care (01) ==
PROVIDERS: PCP Internal Medicine; Visit Provider Anesthesiology
DX: M46.1 Sacroiliitis, not elsewhere classified (principal)
CPT/HCPCS: 99203

== ENCOUNTER 2024-03-06 11:55 | Outpatient (AMB) | payer OTHER, SELFPAY ==
[2024-03-06 11:42] VITALS: BP 128/74; BMI 20.1
--- NOTE | 2024-03-06 11:42 | A.OFFVIS_ITS ---
Vital Signs 03/06/24 11:42 Height 5 ft 8 in Weight 132 lb BMI 20.1 BP 128/74 Blood Pressure Location Lt brachial Position Sitting Intake Visit Reasons: uterine fibroids Allergies No Known Allergies Allergy (Verified 03/06/24 11:42) Is last menstrual period known: Yes Last menstrual period: 03/03/24 HPI Comments Details: Presenting regarding uterine fibroid identified on pelvic ultrasound few months ago. The patient has ParaGard IUD since then menstrual cycles of heavier with no pelvic cramping. The patient is experiencing few times a year back pain that does not appear to be cyclic or premenstrual. 11/21 pelvic ultrasound showed the following: Uterus: The uterus is anteverted, anteflexed and measures 10.2 x 4.2 x 5.8 cm. There is an IUD visualized within the endometrial canal in correct position The double wall endometrial thickness is 0.7 mm. The uterus is smooth in contour and has normal myometrial echogenicity. Small hypoechoic lesion in the left fundal uterus noted measuring 0.9 x 0.9 x 1.0 cm.. Adnexa: Both ovaries are visualized. There is normal color flow to the adnexa. There is no ovarian torsion. There is no pelvic ascites or fluid collection. Right ovary measures 3.8 x 1.2 x 1.8 cm. Volume 4.3 mL. Left ovary measures 3.0 x 2.0 x 2.0 cm. There is a corpus luteal cyst measuring 1.3 x 1.5 x 1.4 cm. 02/21 MRI of the pelvis: IMPRESSION: Right sacroiliac joint findings consistent with sacroiliitis. Correlate with x-ray. Small free fluid in the pelvis, probably physiologic. [facility] Family History (Updated 03/06/24 @ 11:58 by Venecia Multani CMA) Maternal Grandmother Ovarian cancer Social History Household Members: Family Housing: House Alcohol intake: current Alcohol intake frequency: a few times a week Alcohol type: wine Patient Tobacco Use Status: Never used Tobacco Female Reproductive History Menstrual Date of last menstrual period: 03/03/24 control method: copper IUCD Total pregnancies: 3 Full term: 3 Number of Living Children: 3 Review of Systems Const All systems reviewed & are unremarkable except as noted in HPI and below Physical Exam Vital Signs: Last Vital Signs BP 128/74 03/06/24 11:42 BMI result Body Mass Index 20.1 General: Yes no CVA tenderness External Female Exam: normal external appearance and normal appearance of the urethra Speculum Exam - Vagina: normal appearance of the vagina, normal palpation, no lesions and no masses Speculum Exam - Cervix: normal appearance of the cervix, normal palpation, no lesions, no masses and nontender Bimanual exam- vagina & uterus: normal bimanual exam, normal palpation, uterine size normal, normal palpation, uterine shape normal, No Cervical tenderness present and non-tender Bimanual Exam- Adnexa, other: normal adnexae Back/Spine/Pelvis Back: no CVA tenderness Assessment & Plan Assessment & Plan (1) Uterine fibroid: Code(s): D25.9 - Leiomyoma of uterus, unspecified Category: Medical Plan: Discussed with the patient the pelvic ultrasound findings : an anteverted uterus with a 1 cm fundal myoma. IUD is in appropriate position. Discussed the possibility of changing copper IUD to a levo norgestrel IUD, the benefits of which is to decrease the menstrual flow with a mild increase in the risk of breast cancer with long-term use; the patient is happy with ParaGard IUD currently and is not bothered by her menstrual flow, does not have any associated dysmenorrhea and therefore, is not interested at this point to change unless her menstrual cycle gets heavier or pelvic cramping develops. Recomme nded ibuprofen 600 mg p.o. Q 8 hours day 1-3 of menstrual cycle for its anti- inflammatory effect generated by the copper in ParaGard IUD and in an effort to help reduce the menstrual flow. The patient will call in case of pelvic pain/cramping, heavy or irregular menstrual cycles , then other options of treatment for myoma will be considered including control pills, TXA, uterine artery embolization or endometrial ablation especially if the myoma is larger and dysmenorrhea/AUB develops. (2) Back pain: Code(s): M54.9 - Dorsalgia, unspecified Category: Medical Plan: Discussed with the patient that given that the uterus position is anteverted with a small size fundal myoma, in addition to evidence of sacroiliitis by MRI, it is unlikely that the uterine position and/or myoma are the causes of her back pain . In case all medical treatment options for back pain and sacroiliitis are refractory, will attempt a therapeutic trial with any of the different options of treatment for uterine myoma . Orders: Orders US pelvic and transvaginal 1 Year D25.9 - Leiomyoma of uterus, unspecified Coding Level of Care Code New Pt Level 3 (01453) Diagnoses Uterine fibroid D25.9 Back pain M54.9
== END 2024-03-06 13:27 | disposition home or self-care (01) ==
LOC: HO.HWS 11:55
PROVIDERS: PCP Internal Medicine; Visit Provider Obstetrics & Gynecology
DX: D25.9 Leiomyoma of uterus, unspecified (principal); M54.9 Dorsalgia, unspecified
CPT/HCPCS: 99203

== ENCOUNTER → 2024-03-06 11:55 | Outpatient (BNVA) | payer OTHER, SELFPAY | PROVIDERS: PCP Internal Medicine; Visit Provider Obstetrics & Gynecology ==

== ENCOUNTER 2024-03-13 11:27 | Outpatient (REF) | payer OTHER, SELFPAY | END 2024-03-13 11:28 | disposition home or self-care (01) | LOC: HO.US 11:27 | PROVIDERS: PCP Internal Medicine; Visit Provider Obstetrics & Gynecology | DX: D25.9 Leiomyoma of uterus, unspecified (principal) | CPT/HCPCS: 76830; 76856 ==

== ENCOUNTER → 2024-03-13 11:29 | Outpatient (BNV) | payer OTHER, SELFPAY | PROVIDERS: PCP Internal Medicine; Visit Provider Radiology Diagnostic Radiology | DX: D25.9 Leiomyoma of uterus, unspecified (principal) | CPT/HCPCS: 76856 ==

== ENCOUNTER 2024-05-06 11:33 | Outpatient (AMB) | payer OTHER, SELFPAY ==
--- NOTE | 2024-05-06 11:35 | A.OFFVIS_ITS ---
Intake Visit Reasons: US f/u Allergies No Known Allergies Allergy (Verified 05/06/24 11:35) HPI Comments Details: The patient is presenting for follow-up pelvic ultrasound which showed the following: IMPRESSION: Intrauterine IUD is noted in correct position. Is unchanged to previous exam 11/18/2023 Small uterine fibroid is stable. Bilateral ovarian small cysts with a 1 cm dominant cyst in left ovary Doing well with no complaints, no pelvic pressure pain or abnormal uterine bleeding PFSH Family History (Updated 03/06/24 @ 11:58 by Venecia Multani CMA) Maternal Grandmother Ovarian cancer Social History (Updated 03/06/24 @ 11:58 by Venecia Multani CMA) Household Members: Family Housing: House Alcohol intake: current Alcohol intake frequency: a few times a week Alcohol ty pe: wine Patient Tobacco Use Status: Never used Tobacco Review of Systems Const All systems reviewed & are unremarkable except as noted in HPI and below Reports as per HPI and Reports no additional complaints GI Reports no additional complaints Reports no additional complaints Assessment & Plan Assessment & Plan (1) Uterine fibroid: Code(s): D25.9 - Leiomyoma of uterus, unspecified Category: Medical Plan: Discussed with the patient the results of the ultrasound showing a stable size myoma, IUD in appropriate position. Will repeat pelvic ultrasound periodically to monitor the size of the myoma. 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 All questions answered, the patient verbalized understanding Coding Level of Care Code Est Pt Level 3 (47574) Diagnoses Uterine fibroid D25.9
--- OUTSIDE RECORDS SUMMARY | 2024-05-06 13:20 | XMS_ITS | Continuity of Care Document ---
Author Organization [facility] Address [address] [place] [address] Phone Care Team Providers Care Knowledge Management Advisor Name Role Phone Arnoldo Melara Unavailable Unavailable Allergies, Adverse Reactions, Alerts Substance Reaction Status [...] Copied on Encounter [facility], [address], [place], [place], [id number], tel:[phone] VR - [facility] No Information Saritha Mclaughlin. [address], [address], [place], [address], [place]. tel:[phone] Referring Provider: Arnoldo Joshi, [address], [place], [address]. tel:[phone] [facility], [address] [address], [place], [place], [id number], [place] tel:[phone] VR - [place] [facility] Spider Veins - (Telangiectas ia) Saritha Mclaughlin. [address], [address], [place], [address], . tel:[phone] Referring Provider: Arnoldo Joshi, [address], [place], [address]. tel:[phone] [facility], [address] [address], [place], [place], [id number], tel:[phone] [facility] - [place] Spider Veins - (Telangiectas ia) Saritha Mclaughlin. [address] [place] [address], [address], [place], [address], . [phone] Referring Provider: Arnoldo Joshi, [address], [place], [address]. tel:[phone] [facility], [address] [address], [place], [place], [id number], [place] tel:[phone] VR - [place] Spider Veins - (Telangiectas ia) Saritha Mclaughlin. [address] [place] [address], [address], [place], [address], [place]. tel:[phone] Referring Provider: Arnoldo Joshi, [address], [place], [address]. tel:[phone] Offic Cons New/estab Mod-hi 60 [facility], [address], [place], [place], [id number], [place] tel:[phone] VR - [place] Body mass index (BMI) 20.0-20.9, adultSpider Veins - (Telangiectas ia) Saritha Mclaughlin. [address], [address], [place], [address], [place]. tel: [phone] Referring Provider: Arnoldo Joshi, [address], [place], [address]. tel:[phone] [facility], [address], [place], [place], [id number], [place] tel:[phone] VR - [place] Chronic venous htn w oth comp of bilateral low extrm Saritha Mclaughlin. [address], [address], [place], [address], [place]. tel: [phone] Referring Provider: Arnoldo Joshi, [address], [place], [address]. tel:[phone] [facility], [address], [place], [place], [id number], [place] tel:[phone] VR - [place] [facility] [place] No Information Saritha Mclaughlin. [address] [place] [address], [address], [place], [address], [place]. tel: [phone] Referring Provider: Arnoldo Joshi, [address], [place], [address]. tel:[phone] [facility], [address], [place], [place], [id number], [place] tel:[phone] VR - [place] [facility] [place] No Information Saritha Mclaughlin. [address], [address], [place], [address], [place]. tel: [phone] Referring Provider: Arnoldo Joshi, [address], [place], [address]. tel:[phone] Family History Family Member Type Diagnosis Age At Onset No Information Payers Payer name Insurance type Covered democrat ID Authoriza tion(s) No Information Social History [...] Information Instructions Date Instruction Additional Infor mation Continue compression stocking us e Related to Spider Veins - (Telangiectasia) Pre and post instruc tions reviewed and provided Related to Spider Veins - (Telangiectasia) Diet education Related to Body mass index (BMI) 20.0-20.9, adult Giving Encouragement to Exercise Related to Body mass index (BMI) 20.0-20.9, adult Assessments Type Assessment Date No Information Patient Care Teams Name Effective Dates (start - stop) Status Members No Information
== END 2024-05-06 13:37 | disposition home or self-care (01) ==
PROVIDERS: PCP Internal Medicine; Visit Provider Obstetrics & Gynecology
DX: D25.9 Leiomyoma of uterus, unspecified (principal)
CPT/HCPCS: 99213

== ENCOUNTER → 2024-05-06 11:33 | Outpatient (BNVA) | payer OTHER, SELFPAY | PROVIDERS: PCP Internal Medicine; Visit Provider Obstetrics & Gynecology ==

== ENCOUNTER 2024-06-25 06:25 | Outpatient (REF) | payer OTHER, SELFPAY ==
--- NOTE | ~2024-06-25 | FL_ITS ---
EXAMINATION: FL GUIDANCE ONLY HISTORY: M46.1 - Sacroiliitis, not elsewhere classified COMPARISON: None available. TECHNIQUE: Fluoroscopy time: 0.2 minutes. Cumulative Dose: 2.36 mGy. DAP: 0.0411 mGym2 Images: 2. FINDINGS: Images demonstrate a needle and contrast material in the region of the right sacroiliac joint. FL/FL guidance in treatment room IMPRESSION: Fluoroscopy during procedure. Please see procedure report for additional information. Electronically signed by: Donald Swenson MD 06/25/2024 02:36 PM LULI
== END 2024-06-25 06:26 | disposition home or self-care (01) ==
LOC: CF 06:25
PROVIDERS: Visit Provider Anesthesiology
DX: M46.1 Sacroiliitis, not elsewhere classified (principal)
CPT/HCPCS: 27096; J2003; J2795; J3301; Q9967

== ENCOUNTER 2024-06-25 09:52 | Outpatient (AMB) | payer OTHER, SELFPAY ==
--- NOTE | 2024-06-25 09:52 | A.OFFVIS_ITS ---
Vital Signs 06/25/24 10:23 06/25/24 11:03 BP 103/57 L 119/80 Blood Pressure Location Lt brachial Lt brachial Position Sitting Sitting Pulse 80 72 Pulse Source Pulse Oximeter Pulse Oximeter Pulse Oximetry (%) 100 100 Oxygen Delivery Method Room Air Room Air Comment Pre-Op Post-Op Intake Visit Reasons: RIGHT THERAPEUTIC SIJ INJECTION Allergies No Known Allergies Allergy (Verified 05/06/24 11:35) PFSH Family History (Updated 03/06/24 @ 11:58 by Venecia Multani CMA) Maternal Grandmother Ovarian cancer Social History (Updated 03/06/24 @ 11:58 by Venecia Multani CMA) Household Members: Family Housing: House Alcohol intake: current Alcohol intake frequency: a few times a week Alcohol type: wine Patient Tobacco Use Status: Never used Tobacco Physical Exam Vital Signs: Last Vital Signs Pulse 72 06/25/24 11:03 BP 119/80 06/25/24 11:03 Pulse Ox 100 06/25/24 11:03 Oxygen Delivery Method Room Air 06/25/24 11:03 Assessment & Plan Assessment & Plan (1) Sacroiliitis: Code(s): M46.1 - Sacroiliitis, not elsewhere classified Category: Medical (2) Sacroiliac joint dysfunction of right side: Code(s): M53.3 - Sacrococcygeal disorders, not elsewhere classified Category: Medical Plan Diagnostic right sacroiliac joint injection. Informed consent was thoroughly explained to the patient before the procedure.? The patient came to the operating room.? She was positioned prone on operating table with a pillow under her abdomen.? Time-out was performed delineating correct site and side of the procedure, nature of the injection, name and date of of the patient. The lower back and upper buttocks of the patient was prepped with ChloraPrep and draped with sterile utility towels.? C-arm was brought over the operating field the image of the sacroiliac joint was demonstrated on the screen. Significant sacroiliac joint diastasis was noted on the screen. Sacroiliac joint instability most likely is the cause of this patient's pain. Tilting machine contralateral to the left the anterior portion of sacroiliac joint was superimposed of the posterior portion of the sacroiliac joint. After that projection of the sacroiliac joint to the skin was injected with mixture of lidocaine 2 % and ropivacaine 0.5% to form a skin wheal. After that 22 gauge 3- 1/2 inch needle was inserted through the skin wheal and advanced to the sacroiliac joint. The position of the needle in the sacroiliac joint was verified on lateral view. After that injection of the contrast was performed delineating intrathecal spread of the contrast. After that injection of the ropivacaine 0.5% 5 cc was performed into the joint. The needle was removed sterile Band-Aid was applied. Patient tolerated the procedure well. Orders: Orders FL guidance in treatment room Today M46.1 - Sacroiliitis, not elsewhere classified Coding Level of Care Code Procedure Only Diagnoses Sacroiliitis M46.1 Sacroiliac joint dysfunction of right side M53.3
[2024-06-25 10:23] VITALS: BP 103/57; PULSE 80; O2SAT 100
[2024-06-25 11:03] VITALS: BP 119/80; PULSE 72; O2SAT 100
== END 2024-06-25 11:01 | disposition home or self-care (01) ==
LOC: HO.PMCPRC 09:52
PROVIDERS: PCP Internal Medicine; Visit Provider Anesthesiology
DX: M46.1 Sacroiliitis, not elsewhere classified (principal); M53.3 Sacrococcygeal disorders, not elsewhere classified
CPT/HCPCS: 27096

== ENCOUNTER 2024-07-01 10:01 | Outpatient (AMB) | payer OTHER, SELFPAY ==
[2024-07-01 10:03] VITALS: BP 129/78; PULSE 85; O2SAT 100; BMI 20.1
--- NOTE | 2024-07-01 10:03 | A.OFFVIS_ITS ---
Vital Signs 07/01/24 10:03 Height 5 ft 8 in Weight 132 lb 6 oz BMI 20.1 BP 129/78 Blood Pressure Location Lt brachial Position Sitting Pulse 85 Pulse Source Doppler Pulse Oximetry (%) 100 Oxygen Delivery Method Room Air Intake Visit Reasons: Right Diagnostic Sacroiliac joint injection Allergies No Known Allergies Allergy (Verified 07/01/24 10:08) HPI Comments Details: Christine is back in my office to discuss the results of the diagnostic right sacroiliac joint injection. She reports excellent pain relief after the procedure. She reports after the procedure she had pain 0/10. The results are lasting up to till now, she reports excellent mobility and activities of daily living. We agreed that in the future we may attempt to treat the injection with steroids. Small dose Decadron could be something which effectively cover the pain of this patient. Briefly sacroiliac joint fusion and sacroiliac joint innervation stimulation were discussed with the patient. To prevent the formation of the sacroiliac joint problem on the right I recommended patient to avoid high impact aerobic exercise and perform only low-impact exercises, avoid actions like heavy lifting, torso turning torso twisting sharp forward or backward bending. When the patient's pain will come back she will give us a call and schedule a new appointment. [facility] Family History (Updated 03/06/24 @ 11:58 by Venecia Multani CMA) Maternal Grandmother Ovarian cancer Social History (Updated 03/06/24 @ 11:58 by Venecia Multani CMA) Household Members: Family Housing: House Alcohol intake: current Alcohol intake frequency: a few times a week Alcohol type: wine Patient Tobacco Use Status: Never used Tobacco Review of Systems Const All systems reviewed & are unremarkable except as noted in HPI and below ENT Reports Normal hearing present Neuro Reports Normal hearing present, Denies Abnormal speech present and Denies Sensory deficit (Neuro) Physical Exam Vital Signs: Last Vital Signs Pulse 85 07/01/24 10:03 BP 129/78 07/01/24 10:03 Pulse Ox 100 07/01/24 10:03 Oxygen Delivery Method Room Air 07/01/24 10:03 BMI result Body Mass Index 20.1 Const General: no acute distress, alert and Physically active Nutritional Appearance: average body habitus and well nourished Orientation/consciousness: patient oriented x3 Limitations: no limitations Eyes General: appearance normal, both eyes and all related structures Pupils: Equal, round and reactive pupils present EOM: EOMs intact bilaterally Neck Neck: Yes full ROM Chest Chest palpation & inspection: normal inspection of the chest Resp Effort & Inspection: normal respiratory effort, able to speak in complete sentences, normal respiratory pattern, no audible wheezes and no cough Cardio Jugular venous distension: no JVD GI Inspection: Yes normal to inspection Back/Spine/Pelvis Other: Currently patient experiences no pain. No tenderness on palpation in the projection of the sacroiliac joints. Negative Arturo test, negative Gaenslen test, negative pelvic compression and pelvic distraction test. Negative thigh thrust test. Neuro General: patient oriented x3 and gait normal Cranial nerves: Yes CN's II-XII intact bilaterally, Yes Equal, round and reactive pupils present, Yes Normal hearing present and Yes Ability to bilaterally elevate shoulders present Speech: No Abnormal speech present Gait exam (Neuro): Normal gait present Motor exam (neuro): 5/5 motor strength present throughout Sensory Exam: No Sensory deficit (Neuro) Extrem General: No pedal edema Psych Speech and movement: Normal speech and movement present Affect: normal affect Attitude: cooperative Thought process: Normal thought process present Thought content: Normal thought content present Insight: Good insight present (Psych) Judgement: Good judgement present (Psych) Assessment & Plan Assessment & Plan (1) Sacroiliitis: Code(s): M46.1 - Sacroiliitis, not elsewhere classified Category: Medical Plan The MRI of the pelvic demonstrates sacroiliac joint inflammation. Excellent results of the right sacroiliac joint diagnostic injection. Patient reports improvement. To avoid repetition of the exacerbation in the future I recommend her to avoid high impact aerobic exercise, exercise with stationary bicycle, elliptical machine, or swimming. Avoid heavy lifting, torso twisting sharp forward or backwards bending. Coding Level of Care Code Est Pt Level 3 (61651) Diagnoses Sacroiliitis M46.1
== END 2024-07-01 10:18 | disposition home or self-care (01) ==
PROVIDERS: PCP Internal Medicine; Visit Provider Anesthesiology
DX: M46.1 Sacroiliitis, not elsewhere classified (principal)
CPT/HCPCS: 99213

== ENCOUNTER → 2024-07-01 10:01 | Outpatient (BNVA) | payer OTHER, SELFPAY | PROVIDERS: PCP Internal Medicine; Visit Provider Anesthesiology ==

== ENCOUNTER 2024-12-17 07:36 | Outpatient (REF) | payer OTHER, SELFPAY ==
--- OUTSIDE RECORDS SUMMARY | 2018-09-03 06:00 | XMS_ITS | Continuity of Care Document ---
Author Organization [facility] Address [address] [place] [address] Phone Care Team Providers Care Color Card Maker Name Role Phone Arnoldo Melara MD Unavailable Unavailabl e Allergies, Adverse Reactions, Alerts Substance Reaction Status Criticality No Known Allergies Active No Inform ation Procedures Procedure Date No Charge For Services Sngl/mx Inj Scleros-veins; Romo 19 Sngl/mx Inj Scleros-veins; Romo 19 Sngl/mx Inj Scleros-veins; Romo 19 Offic Cons New/estab Mod-hi 60 18 Duplex Scan-extrem Veins; Comp 18 PT Did Not Receive Services PT Did Not Receive Services Advance Directives Directive Yes / No Effective Date File Name No Information Encounters Encounter Description Practice Location Reason(s) For Visit Diagnoses Date Provider Providers Copied on Encounter [facility], [address], [place], [place], [id number], [place] tel:[phone] [facility] - [facility] No Information Saritha Mclaughlin. [address] [place] [address], [address], [place], [address], [place]. [phone] Referring Provider: Arnoldo Melara MD F, [address], [place], [address]. tel:[phone] [facility], [address], [place], [place], [id number], [place] tel:[phone] [facility] [place] [facility] [place] [facility] - ([place]) Saritha Mclaughlin. [address], [address], [place], [place], [facility], . tel:[phone] Referring Provider: Arnoldo Joshi, [address], [place], [address]. tel:[phone] [facility], [address] [address], [place], [place], [id number], [place] tel:[phone] [place] [facility] - ([place]) Saritha Mclaughlin. [address] [place] [address], [address], [place], [address], [place]. tel:[phone] Referring Provider: Arnoldo Joshi, [address], [place], [address]. tel:[phone] [facility], [address] [facility], [place], [id number], [place] tel:[phone] [place] [facility] - ([place]) Saritha Mclaughlin. [address] [place] [address], [address], [place], [address], [place]. tel:[phone] Referring Provider: Arnoldo Joshi, [address], [place], [address]. tel:[phone] Offic Cons New/estab Mod-hi 60 [facility], [address], [place], [place], [id number], [place] tel:[phone] [place] Body mass index (BMI) 20.0-20.9, adultSpider Veins - ([place]) Saritha Mclaughlin. [address], [address], [place], [address], [place]. tel: [phone] Referring Provider: Arnoldo Joshi, [address], [place], [address]. tel:[phone] [facility], [address], [place], [place], [id number], [place] tel:[phone] [place] Chronic venous htn w oth comp of bilateral low extrm Saritha Mclaughlin. [address], [address], [place], [address], [place]. tel: [phone] Referring Provider: Arnoldo Joshi, [address], [place], [address]. tel:[phone] [facility], [address], [place], [place], [id number], [place] tel:[phone] [facility] [place] No Information Saritha Mclaughlin. [address], [address], [place], [address], [place]. tel: [phone] Referring Provider: Arnoldo Joshi, [address], [place], [address]. tel: [facility], [address], [place], [place], [id number], [place] tel:[phone] [facility] [place] No Information Saritha Mclaughlin. [address], [address], [place], [address], [place]. tel: [phone] Referring Provider: Arnoldo Joshi, [address], [place], [address]. tel:[phone] Family History Family Member Type Diagnosis Age At Onset No Information Payers Payer name Insurance type Covered libertarian ID Authoriza tion(s) No Information Social History Type Description Quantity Date Captured Comments Sex Female Smoking Status No Information Chief Complaint And Reason For Visit No Information Reason For Referral Reason For Referral No Information Plan Of Treatment Date Type Action Status Goal Diet education completed Referral Ordered: Duplex Scan-extrem Veins; Comp Bilateral leg ordered History Of Present Illness Encounter Date Complaint History Of Prese nt Illness No Information Functional Status Date Functional Assessmen t No Information Instructions Date Instruction Additional Infor mation Giving Encouragement to Exercise Related to Body mass index (BMI) 20.0-20.9, adult Diet education Related to Body mass index (BMI) 20.0-20.9, adult Pre and post instruc tions reviewed and provided Related to Spider Veins - ([place]) Continue compression stocking us e Related to Spider Veins - ([place]angiect[place]) Assessments Type Assessment Date No Information Patient Care Teams Name Effective Dates (start - stop) Status Members No Information
--- NOTE | ~2024-12-17 | FL_ITS ---
EXAMINATION: FL GUIDANCE ONLY HISTORY: M53.3 - Sacrococcygeal disorders, not elsewhere classified COMPARISON: None available. TECHNIQUE: Fluoroscopy time: 7.8 seconds. Cumulative Dose: 1.3042 mGy. DAP: 0.3731 mGym2 Images: 2. FINDINGS: Fluoroscopic spot films of the left hemipelvis demonstrate a needle and contrast material in the region of the sacroiliac joint. FL/FL guidance in treatment room IMPRESSION: Fluoroscopy during procedure. Please see procedure report for additional information. Electronically signed by: Donald Swenson MD 12/17/2024 12:41 PM EDT
--- OUTSIDE RECORDS SUMMARY | 2024-12-17 07:39 | XMS_ITS | Clinical Summary ---
Author Organization [address] [facility] Address [address] [place] [phone] Phone Care Team Providers Care Education Diagnostician Name Role Phone Nadeem Velez DO Primary Care Provider [phone] Encounters Date Type Department Care Team Description 09/30/2024 10:00 AM EDT - 09/30/2024 11:59 PM EDT Hospital Encounter [facility] Ul[facility] [address] [place] [address] Inconclusive mammogram due to dense breasts Discharge Disposition: Home or Self Care from Last 3 Months Social History Tobacco Use Types Packs/Day Years Used Date Smoking Tobacco: Never Assessed Comments Unknown Sex and Gender Information Value Date Recorded Sex Assigned at Not on file Legal Sex Female 5:17 AM EST Gender Identity Not on file Sexual Orientation Not on file Last Filed Vital Signs Vital Sign Reading Time Taken Comments Blood Pressure 110/70 08/04/2021 11:16 AM EDT Si tting L Arm Pulse 81 08/04/2021 11:16 AM EDT Temperature - - Respiratory Rate - - Oxygen Saturation - - Inhaled Oxygen Concentration - - Weight 59.9 kg (132 lb) 08/04/2021 11:16 AM EDT Height 167.6 cm (5' 6 ) 08/04/2021 11:16 AM EDT Body Mass Index 21.31 08/04/2021 11:16 AM EDT Plan of Treatment Health Maintenance Due Date Last Done Comments Hepatitis B Vaccines (1 of 3 - 19+ 3-dose series) 2001 Cervical Cancer Screening: Pap Smear 2003 HIV Screening 04/03/2022 Hepatitis C Screening 04/03/2022 Social Influencers of Health Screening 04/03/2022 COVID-19 Vaccine ( season) 2023 05/11/2021, 08/23/2020, 08/02/2020 Depression Screening 05/01/2024 Breast Cancer Screening 05/25/2024 05/25/2022 Influenza Vaccine (#1) 2024 4, 04/30/2022, 01/20/2021, Additional history exists DTaP,Tdap,and Td Vaccines (3 - Td or Tdap) 12/19/2027 12/18/2017, 05/10/2011 Cholesterol Screening (Lipid Panel) 08/05/2029 08/05/2024 HIB Vaccines Aged Out No longer eligi ble based on patient's age to complete this topic HPV Vaccines Aged Out No longer eligi ble based on patient's age to complete this topic Hepatitis A Vaccines Aged Out No long er eligible based on patient's age to complete this topic IPV Vaccines Aged Out No longer eligi ble based on patient's age to complete this topic MMR Vaccines Aged Out No longer eligi ble based on patient's age to complete this topic Meningococcal ACWY Vaccine Aged Out N o longer eligible based on patient's age to complete this topic Meningococcal B Vaccine Aged Out No l onger eligible based on patient's age to complete this topic Pneumococcal Vaccine: Pediatrics (0 to 5 Years) and At-Risk Patients (6 to 49 Years) Aged Out No longer eligible based on patient's age to complete this topic RSV Immunization Patients Under 20 months Aged Out No longer eligible based on patient's age to complete this topic Varicella Vaccines Aged Out No longer eligible based on patient's age to complete this topic Procedures Procedure Name Priority Date/Time Associated Diagnosis Comments US BREAST COMPLETE BILAT SCREENING Routine 09/30/2024 11:04 AM EDT Inconclusive mammogram due to dense breasts LIPID PANEL WITH REFLEX TO DIRECT LDL Routine 08/05/2024 1:22 PM EDT Routine general medical examination at a health care facility EXTERNAL MAMMOGRAM REPORT Routine 05/25/2022 1:56 PM EST from Last 3 Months or Most Recently Relevant to Health Maintenance Results * US Breast Complete bilat Screening (09/30/2024 11:04 AM EDT) Anatomical Region Laterality Modality Breast Bilateral Ultrasound 09/30/2024 11:0 0 AM EDT Impressions 09/30/2024 11:05 AM EDT No finding to suggest malignancy in either breast. A negative breast ultrasound in the presence of a clinically suspicious palpable abnormality does not preclude the possibility of malignancy or alter the indications for biopsy. Mammography is the primary screening modality for detecting breast cancer. Recommend bilateral screening mammography. This study was performed as a screening examination. Any areas of palpable concern should be managed on the basis of the clinical breast exam. ASSESSMENT: BI-RADS 2: BENIGN RETURN TO ROUTINE FOLLOW-UP: Yes RECOMMENDATION(S): 1: Routine screening mammogram BILATERAL Any areas of palpable concern should be managed on the basis of the clinical breast exam Location: [address], [address] -------- FINAL REPORT -------- Dictated By: Luca Otero Dictated Date: 09/30/2024 11:00 ET Assigned Physician: Luca Otero Reviewed and Electronically Signed By: Luca Otero Signed Date: 09/30/2024 11:05 ET Workstation ID: [id number] Transcribed By: Self Edit Transcribed Date: 09/30/2024 11:00 ET Narrative 09/30/2024 11:05 AM EDT EXAM: BILATERAL SCREENING BREAST ULTRASOUND US COMPARISON: Portions of a previous study 11/14/22 MAMMOGRAPHY TISSUE DENSITY: No prior mammograms available for comparison. The echotexture appears to contain a large amount of fibroglandular elements. HISTORY: SCREENING The patient has undergone bilateral breast implant placement. The patient reports a palpable abnormality. IMAGING: High-frequency linear transducer grayscale imaging of each breast was performed. Documentation and archived of images in multiple planes from all 4 quadrants of each breast and of the axilla and retroareolar regions performed. FINDINGS: RIGHT BREAST: There is no suspicious mass. There is no suspicious area of altered echotexture. The interface with the breast implant is sharply defined. No fluid surrounding the implant. LEFT BREAST: There is no suspicious mass. There is no suspicious area of altered echotexture. There is a 0.6 cm oval cyst in the 12 o'clock position 2 cm from the left nipple with typical benign features. The interface with the breast implant is sharply defined. No fluid surrounding the implant. The patient reported an area of palpable concern to the technologist in the 7 o'clock region 7 cm from the right nipple. This correlates to an area of slight skin thickening in the area of scar. Procedure Note Luca Otero MD - 09/30/2024 EXAM: BILATERAL SCREENING BREAST ULTRASOUND US COMPARISON: Portions of a previous study 11/14/22 MAMMOGRAPHY TISSUE DENSITY: No prior mammograms available for comparison. The echotexture appears tocontain a large amount of fibroglandular elements. HISTORY: SCREENING The patient has undergone bilateral breast implant placement. The patientreports a palpable abnormality. IMAGING: High-frequency linear transducer grayscale imaging of each breastwas performed. Documentation and archived of images in multiple planesfrom all 4 quadrants of each breast and of the axilla and retroareolarregions performed. FINDINGS: RIGHT BREAST: There is no suspicious mass. There is no suspicious area of alteredechotexture. The interface with the breast implant is sharply defined. No fluidsurrounding the implant. LEFT BREAST: There is no suspicious mass. There is no suspicious area of alteredechotexture. There is a 0.6 cm oval cyst in the 12 o'clock position 2 cm from the leftnipple with typical benign features. The interface with the breast implant is sharply defined. No fluidsurrounding the implant. The patient reported an area of palpable concern to the technologist inthe 7 o'clock region 7 cm from the right nipple. This correlates to anarea of slight skin thickening in the area of scar. IMPRESSION: No finding to suggest malignancy in either breast. A negative breast ultrasound in the presence of a clinically suspiciouspalpable abnormality does not preclude the possibility of malignancy oralter the indications for biopsy. Mammography is the primary screening modality for detecting breastcancer. Recommend bilateral screening mammography. This study was performed as a screening examination. Any areas ofpalpable concern should be managed on the basis of the clinical breastexam. ASSESSMENT: BI-RADS 2: BENIGN RETURN TO ROUTINE FOLLOW-UP: Yes RECOMMENDATION(S): 1: Routine screening mammogram BILATERAL Any areas of palpable concern should be managed on the basis of theclinical breast exam Location: [address], [address] -------- FINAL REPORT -------- Dictated By: Luca Otero Dictated Date: 09/30/2024 11:00 ET Assigned Physician: Luca Otero Reviewed and Electronically Signed By: Luca Otero Signed Date: 09/30/2024 11:05 ET Workstation ID: [id number] Transcribed By: Self Edit Transcribed Date: 09/30/2024 11:00 ET us Nadeem Velez DO [facility] US PROCEDURES Final Resul t * Lipid panel with reflex to direct LDL (08/05/2024 1:22 PM EDT) Cholesterol 169 0 - 200 mg/dL LAB CHEMISTRY METHOD 08/05/2024 4:32 PM EDT [facility] Triglycerides 84 0 - 150 mg/dL LAB CHEMISTRY METHOD 08/05/2024 4:32 PM EDT [facility] HDL 78 >=40 mg/dL LAB CHEMISTRY METHOD 08/05/2024 4:32 PM EDT [facility] LDL Calculated 74 0 - 100 mg/dL LAB CHEMISTRY METHOD 08/05/2024 4:32 PM EDT [facility] VLDL Cholesterol Heber 16.8 mg/dL LAB CHEMISTRY METHOD 08/05/2024 4:32 PM EDT [facility] Non HDL Chol. (LDL+VLDL) 91 <145 mg/dL LAB CHEMISTRY METHOD 08/05/2024 4:32 PM EDT [facility] Chol/HDL Ratio 2.2 0.0 - 4.4 LAB CHEMISTRY METHOD 08/05/2024 4:32 PM EDT [facility] Blood Venous blood specimen / Unknown Venipuncture / Unknown 08/05/2024 1:22 PM EDT 08/05/2024 1:22 PM EDT us Mel Ferrell [employer]INER LAB BLOOD ORDERABLES Fi nal Result [facility] ([email or web address] [address] [place] [address], * External Mammogram Report (05/25/2022 1:56 PM EST) Anatomical Region Laterality Modality Mammography Nadeem Velez DO IMG BI PROCEDURES Final Resul t from Last 3 Months or Most Recently Relevant to Health Maintenance Insurance [employer] [facility] Care Teams Education Diagnostician Relationship Specialty Start Date End Date Nadeem Velez DO [address] [place] [phone] PCP - General Internal Medicine 12/16/11
== END 2024-12-17 07:37 | disposition home or self-care (01) ==
LOC: CF 07:36
PROVIDERS: Visit Provider Anesthesiology
DX: M46.1 Sacroiliitis, not elsewhere classified (principal); M53.3 Sacrococcygeal disorders, not elsewhere classified
CPT/HCPCS: 27096; J2003; J2795; J3301; Q9967

== ENCOUNTER 2024-12-17 11:50 | Outpatient (AMB) | payer OTHER, SELFPAY ==
[2024-12-17 11:59] VITALS: BP 118/84; PULSE 72; RESP 16; O2SAT 100
--- NOTE | 2024-12-17 11:59 | A.OFFVIS_ITS ---
Vital Signs 12/17/24 11:59 12/17/24 12:15 Weight 135 lb BP 118/84 119/90 H Blood Pressure Location Lt brachial Lt brachial Position Sitting Sitting Respiration 16 16 Pulse 72 78 Pulse Source Pulse Oximeter Pulse Oximetry (%) 100 99 Oxygen Delivery Method Room Air Room Air Intake Visit Reasons: Right Therapeutic SIJ Injection Compliance Advisor Required: No Allergies No Known Allergies Allergy (Verified 07/01/24 10:08) HPI Comments Details: Christine is back in my office reporting increased pain in the left side projection of the left sacroiliac joint. The physical exam see as below. She requesting me to perform this time left-sided therapeutic sacroiliac joint injection. MRI of the pelvis of this patient demonstrated bilateral sacroiliac joint inflammation. See the full report of the MRI as below. She reports lots of psychological stress. She is convinced that psychological stress increases level of pain. We agreed that I will perform for her therapeutic left sacroiliac joint injection. [facility] Family History (Updated 03/06/24 @ 11:58 by Venecia Multani CMA) Maternal Grandmother Ovarian cancer Social History (Updated 03/06/24 @ 11:58 by Venecia Multani CMA) Household Members: Family Housing: House Alcohol intake: current Alcohol intake frequency: a few times a week Alcohol type: wine Patient Tobacco Use Status: Never used Tobacco Review of Systems Const All systems reviewed & are unremarkable except as noted in HPI and below ENT Reports Normal hearing present Neuro Reports Normal hearing present, Denies Abnormal speech present and Denies Sensory deficit (Neuro) Physical Exam Vital Signs: Last Vital Signs Pulse 78 12/17/24 12:15 Resp 16 12/17/24 12:15 BP 119/90 H 12/17/24 12:15 Pulse Ox 99 12/17/24 12:15 Oxygen Delivery Method Room Air 12/17/24 12:15 Const General: no acute distress, alert and Physically active Nutritional Appearance: average body habitus and well nourished Orientation/consciousness: patient oriented x3 Limitations: no limitations Eyes General: appearance normal, both eyes and all related structures Pupils: Equal, round and reactive pupils present EOM: EOMs intact bilaterally Neck Neck: Yes full ROM Chest Chest palpation & inspection: normal inspection of the chest Resp Effort & Inspection: normal respiratory effort, able to speak in complete sentences, normal respiratory pattern, no audible wheezes and no cough Cardio Jugular venous distension: no JVD GI Inspection: Yes normal to inspection Back/Spine/Pelvis Other: Currently patient experiences no pain. No tenderness on palpation in the projection of the sacroiliac joints. Positive bilateral Arturo test, positive Gaenslen test, positive pelvic compression and pelvic distraction test on the left. Negative thigh thrust test. Neuro General: patient oriented x3 and gait normal Cranial nerves: Yes CN's II-XII intact bilaterally, Yes Equal, round and reactive pupils present, Yes Normal hearing present and Yes Ability to bilaterally elevate shoulders present Speech: No Abnormal speech present Gait exam (Neuro): Normal gait present Motor exam (neuro): 5/5 motor strength present throughout Sensory Exam: No Sensory deficit (Neuro) Extrem General: No pedal edema Psych Speech and movement: Normal speech and movement present Affect: normal affect Attitude: cooperative Thought process: Normal thought process present Thought content: Normal thought content present Insight: Good insight present (Psych) Judgement: Good judgement present (Psych) Results Reviewed Results Reviewed: MRI of the pelvis, using sacral protocol. Multiplanar multisequence imaging on a 1.5 Clarissa scanner. FINDINGS: BONE/JOINTS: There is edema in the ilium and the sacrum marginating the right SI joint. The right SI joint appears wider as compared to the left side. No significant joint effusion is seen. No significant edema or effusion is identified associated with the left SI joint. No significant sacral edema otherwise to indicate stress injury or fracture. Limited evaluation of the hip joints, with anatomic alignment. No findings to suggest fracture, avascular necrosis or stress reaction. In the visualized lower lumbar spine, the vertebral body heights are maintained. Loss of signal in the L5-S1 disc. MUSCLE/TENDONS: Limited evaluation. Visualized tendons are intact. No significant muscle edema or tear are seen. No significant greater trochanteric or iliopsoas bursitis. ADDITIONAL FINDINGS: Urinary bladder appears unremarkable. Small fluid in the pelvis. No groin lymphadenopathy. IMPRESSION: Right sacroiliac joint findings consistent with sacroiliitis. Correlate with x-ray. Small free fluid in the pelvis, probably physiologic. Assessment & Plan Assessment & Plan (1) Sacroiliitis: Code(s): M46.1 - Sacroiliitis, not elsewhere classified Category: Medical (2) Sacroiliac joint dysfunction of left side: Code(s): M53.3 - Sacrococcygeal disorders, not elsewhere classified Category: Medical Plan Therapeutic left sacroiliac joint injection. Informed consent was thoroughly explained to the patient before the procedure.? The patient came to the operating room.? She was positioned prone on operating table with a pillow under her abdomen.? Time-out was performed delineating correct site and side of the procedure, nature of the injection, name and date of of the patient. The lower back and upper buttocks of the patient was prepped with ChloraPrep and draped with sterile utility towels.? C-arm was brought over the operating field the image of the left sacroiliac joint was demonstrated on the screen. Tilting machine contralateral to the right the anterior portion of sacroiliac joint was superimposed of the posterior portion of the sacroiliac joint. After that projection of the sacroiliac joint to the skin was injected with mixture of lidocaine 2 % and ropivacaine 0.5% to form a skin wheal. After that 22 gauge 3- 1/2 inch needle was inserted through the skin wheal and advanced to the sacroiliac joint. The position of the needle in the sacroiliac joint was verified on lateral view. After that injection of the contrast was performed delineating intra-articular spread of the contrast. After that injection of the ropivacaine 0.5% 5 cc mixed with Kenalog 40 mg was performed into the joint. The needle was removed sterile Band-Aid was applied. Patient tolerated the procedure well Orders: Orders FL guidance in treatment room Today M53.3 - Sacrococcygeal disorders, not elsewhere classified Coding Level of Care Code Est Pt Level 3 (24393) Procedure Only Diagnoses Sacroiliitis M46.1 Sacroiliac joint dysfunction of left side M53.3
[2024-12-17 12:15] VITALS: BP 119/90; PULSE 78; RESP 16; O2SAT 99
== END 2024-12-17 12:16 | disposition home or self-care (01) ==
LOC: HO.PMCPRC 11:50
PROVIDERS: PCP Internal Medicine; Visit Provider Anesthesiology
DX: M46.1 Sacroiliitis, not elsewhere classified (principal); M53.3 Sacrococcygeal disorders, not elsewhere classified
CPT/HCPCS: 27096; 99213